=== PATIENT | female | born 1970 | race Two or more races ===

== ENCOUNTER 2020-03-29 12:15 | Emergency (ER) | payer OTHER ==
[2020-03-29 12:21] VITALS: BMI 27.9
[2020-03-29 13:12] LABS: BASO % 0.7 % (0-2.0); EOS % 3.2 % (0-4.5); HEMATOCRIT 39.8 % (32.4-45.2); HEMOGLOBIN 13.2 GM/dL (10.7-15.3); LYMPH % 46.3 % (8-40); MCH 30.2 pg (25.7-33.7); MCHC 33.3 g/dl (32.0-36.0); MEAN CELL VOLUME 90.9 fl (80-96); MEAN PLT VOLUME 9.4 fl (7.5-11.1); MONO % 6.5 % (3.8-10.2); NEUT % 43.3 % (42.8-82.8); PLATELET COUNT 234 K/MM3 (134-434); RBC 4.38 M/mm3 (3.60-5.2); RDW 13.6 % (11.6-15.6); WHITE BLOOD COUNT 5.3 K/mm3 (4.0-10.0)
[2020-03-29] MEDS ORDERED: ACETAMINOPHEN 1000 MG/100 ML VIAL (NON FORMULARY) IVPB ONE (13:23)
[2020-03-29] MEDS ORDERED: FAMOTIDINE 20 MG/50 ML IVPB 20 MG/50 ML MG IVPB ONE ×2 (13:23→13:27)
[2020-03-29] MEDS ORDERED: ACETAMINOPHEN INJECTION 100 ML IVPB ONE (13:26)
[2020-03-29 13:43] LABS: ALBUMIN 4.1 g/dl (3.4-5.0); ALK PHOS 117 U/L (45-117); ANION GAP 6 MMOL/L (8-16); BILIRUBIN,TOTAL 0.3 mg/dL (0.2-1); BLOOD UREA NITROGEN 17.4 mg/dL (7-18); CALCIUM 9.6 mg/dL (8.5-10.1); CHLORIDE 108 mmol/L (98-107); CO2 28 mmol/L (21-32); GLUCOSE,RANDOM 85 mg/dL (74-106); LIPASE 218 U/L (73-393); POTASSIUM 4.4 mmol/L (3.5-5.1); SGOT/AST 16 U/L (15-37); SGPT/ALT 22 U/L (13-61); SODIUM 142 mmol/L (136-145); TOT PROT 7.6 g/dl (6.4-8.2)
[2020-03-29 16:29] VITALS: BP 105/74; PULSE 70; TEMP 97.4
== END 2020-03-29 17:12 | disposition home or self-care (01) ==
LOC: JER 12:15
PROC: 3E033GC Introduction of Other Therapeutic Substance into Peripheral Vein, Percutaneous Approach (ICD-10-PCS; principal; 2020-03-29)
DX: R07.9 Chest pain, unspecified (principal)
CPT/HCPCS: 36415; 71045-TC-FY; 80053; 82550; 82553; 83690; 84484; 85025; 93005; 93010; 99285-25; J0131

== ENCOUNTER 2021-12-25 13:57 | Emergency (ER) | payer OTHER ==
[2021-12-25 14:11] VITALS: BP 132/84; PULSE 89; TEMP 97.9; BMI 32.5
== END 2021-12-25 15:49 | disposition home or self-care (01) ==
LOC: JERFT 13:57
DX: R09.89 Other specified symptoms and signs involving the circulatory and respiratory systems (principal)
CPT/HCPCS: 70360-TC-FY; 70490-TC; 99284-25